=== PATIENT | female | born 1960 | race Native Hawaiian/Other Pacific Islander ===

== ENCOUNTER 2016-08-24 | Outpatient (CLI) | payer MEDICAID | END 2016-08-24 21:52 | disposition critical access hospital (66) | CPT/HCPCS: A0425; A0429 ==

== ENCOUNTER 2016-08-24 21:57 | Emergency (ER) | payer MEDICAID ==
--- NOTE | 2016-08-24 23:01 | ED Physician Documentation ---
PD HPI SYNCOPE - Stated complaint Stated Complaint: SYNCOPE - Chief complaint Chief Complaint: General - History obtained from History obtained from: Patient, Family - History of Present Illness Witnessed: Witnessed Timing - onset: Today (tonight) Duration: Seconds (15-30 seconds) Preceding symptoms: None Associated symptoms: None Contributing factors: Other (drank some alcohol and had just used marijuana) Pain level max: 0 Pain level now: 0 Similar symptoms before: Has not had sx before Recently seen: Other (post-influenza pneumonia with respiratory failure ( required intubation, with protracted course of several weeks in hospital); this was in June 2016) - Additional information Additional information: patient was seated at dinner with family. family witnessed patient slowly became drowsy, leaning forward, speech was slurred and then she lost consciousness. This lasted approximately 15-30 seconds with subsequent full and rapid recovery to baseline mental status. Family and patient believe this was related to marijuana she had just used before the event. They also note that patient did a lot of walking earlier this afternoon, and thus had already felt tired from this activity. She denies any chest pain, dyspnea, ROBERTS, weakness, numbness. She presents to ED asymptomatic. Review of Systems Constitutional: denies: Fever, Chills, Fatigue, Sweats Cardiac: reports: Reviewed and negative Respiratory: reports: Reviewed and negative GI: reports: Reviewed and negative Neurologic: reports: Syncope. denies: Generalized weakness, Focal weakness, Numbness, Seizure, Headache PD PAST MEDICAL HISTORY - Past Medical History Past Medical History: Yes Cardiovascular: Hypertension Respiratory: Asthma GI: GERD Psych: Anxiety - Past Surgical History Past Surgical History: No - Present Medications Home Medications: Ambulatory Orders Medication Instructions Recorded Confirmed Albuterol Sulf [Ventolin Hfa 2 puffs INH Q4HR PRN #1 inhaler 07/12/16 Inhaler] Carvedilol 3.125 mg PO BID #10 tablet 07/12/16 Famotidine 20 mg PO BID #10 tablet 07/12/16 Ipratropium/Albuterol Sulfate 4 gm IH Q6H #1 aer.w.adap 07/12/16 [Combivent Respimat Inhal [place]] Lisinopril 5 mg PO DAILY #7 tablet 07/12/16 Prednisone 30 mg PO DAILY #15 tablet 07/12/16 Spironolactone 25 mg PO DAILY #7 tablet 07/12/16 - Allergies Allergies/Adverse Reactions: Allergies Allergy/AdvReac Type Severity Reaction Status Date / Time No Known Drug Allergies Allergy Verified 07/12/16 12:02 - Social History Does the pt smoke?: Yes Smoking Status: Former smoker Does the pt drink ETOH?: Yes ETOH Use: Beer Does the pt have substance abuse?: No PD ED PE NORMAL - Vitals Vital signs reviewed: Yes - General General: Alert and oriented X 3, No acute distress, Well developed/nourished - HEENT HEENT: PERRL, EOMI, Moist mucous membranes - Neck Neck: Supple, no meningeal sign - Cardiac Cardiac: RRR, No murmur - Respiratory Respiratory: No respiratory distress, Clear bilaterally - Abdomen Abdomen: Soft, Non tender - Derm Derm: Normal color, Warm and dry - Extremities Extremities: No edema - Neuro Neuro: Alert and oriented X 3, youth corrections officer 2-12 intact, No motor deficit, No sensory deficit, Normal speech Results - Vitals Vitals: Vital Signs - 24 hr 08/24/16 08/24/16 23:41 23:42 Temperature 36.6 C Heart Rate 100 Heart Rate [ 103 H Sitting] Heart Rate [ 105 H Standing] Heart Rate [ 93 Supine] Respiratory 16 Rate Blood Pressure 132/89 H Blood Pressure 130/93 H [Sitting] Blood Pressure 132/89 H [Standing] Blood Pressure 130/81 H [Supine] O2 Saturation 95 Oxygen O2 Source Room air - EKG (time done) No standard instances Rate: Rate (enter#) (102), Tachy Rhythm: Sinus tachycardia [place]: LAD Intervals: Normal [place] QRS: LVH Ischemia: T wave inversion (inferior leads, V5, V6) PD MEDICAL DECISION MAKING - ED course Complexity details: considered differential, d/w patient, d/w family ED course: Patient does not want emergent testing done, and family agrees with this: they are confident that what they witnessed wasn't syncope ("fainting"), but rather she became drowsy and "relaxed" (per family) due to a combination of the patient being tired, having consumed some alcohol, and the marijuana she used. Departure - Departure Disposition: 01 Home, Self Care Clinical Impression: Hypotension Qualifiers: Hypotension type: unspecified hypotension type Qualified Code(s): I95.9 - Hypotension, unspecified Condition: Good Instructions: ED Hypotension All Causes Follow-Up: Jade Mullins ARNP [Primary Care Provider] - Discharge Date/Time: 08/24/16 23:53
[2016-08-24 23:42] VITALS: BP 130/81
== END 2016-08-24 23:53 | disposition home or self-care (01) ==
LOC: EDUNIT# → ED 21:57
DX: I95.9 Hypotension, unspecified (principal); I10 Essential (primary) hypertension; J45.909 Unspecified asthma, uncomplicated; K21.9 Gastro-esophageal reflux disease without esophagitis; Z87.891 Personal history of nicotine dependence
CPT/HCPCS: 80053; 80320; 83690; 84484; 85025; 93005; 93010; 99283; 99284

== ENCOUNTER 2016-12-19 17:38 | Outpatient (CLI) | payer MEDICAID | END 2016-12-19 17:39 | disposition home or self-care (01) | DX: I50.22 Chronic systolic (congestive) heart failure (principal) ==

== ENCOUNTER 2018-01-08 08:00 | Outpatient (CLI) | payer MEDICAID ==
[2018-01-08 12:58] LABS: BASOPHILS % (AUTO) 0.5 %; EOSINOPHILS # (AUTO) 0.1 10^3/uL (0.0-0.7); EOSINOPHILS % (AUTO) 1.5 %; HGB - HEMOGLOBIN 14.4 g/dL (12.0-16.0); LYMPHOCYTES # (AUTO) 1.8 10^3/uL (1.5-3.5); LYMPHOCYTES % (AUTO) 22.1 %; MEAN CORPUSCULAR HEMOGLOBIN 32.1 pg (27.0-31.0); MEAN CORPUSCULAR HGB CONC 33.5 g/dL (32.0-36.0); MEAN CORPUSCULAR VOLUME 95.8 fL (81.0-99.0); MEAN PLATELET VOLUME 8.1 fL (7.9-10.8); MONOCYTES # (AUTO) 0.6 10^3/uL (0.0-1.0); NEUTROPHILS # (AUTO) 5.5 10^3/uL (1.5-6.6); NEUTROPHILS % (AUTO) 68.9 %; PLT - PLATELET COUNT 304 10^3/uL (130-450); RED BLOOD COUNT 4.49 10^6/uL (4.20-5.40); RED CELL DISTRIBUTION WIDTH 14.9 % (12.0-15.0); WHITE BLOOD COUNT 7.9 x10^3/uL (4.8-10.8)
[2018-01-08 13:14] LABS: ALBUMIN 4.2 g/dL (3.2-5.5); ALBUMIN/GLOBULIN RATIO 1.5 (1.0-2.2); ALKALINE PHOSPHATASE 72 IU/L (42-121); ALT ALANINE AMINOTRANSFERASE 14 IU/L (10-60); AST ASPARTATE AMINOTRANSFERASE 18 IU/L (10-42); BILIRUBIN,TOTAL 1.1 mg/dL (0.2-1.0); BUN - BLOOD UREA NITROGEN 13 mg/dL (6-20); CALCIUM 9.2 mg/dL (8.5-10.3); CARBON DIOXIDE - CO2 31 mmol/L (21-32); CHLORIDE 101 mmol/L (101-111); CHOL/HDL RATIO 3.1 (<4.4); CHOLESTEROL 168 mg/dL; CREATININE 0.7 mg/dL (0.4-1.0); GFR - MDRD 86 (>89); GLUCOSE 83 mg/dL (70-100); HDL CHOLESTEROL 55 mg/dL; LDL CHOLESTEROL,CALCULATED 91 mg/dL; LDL/HDL RATIO 1.7 (<4.4); SODIUM 137 mmol/L (135-145); VLDL CHOLESTEROL 22 mg/dL
== END 2018-01-08 08:01 | disposition home or self-care (01) ==
LOC: LAB.N 08:00
PROVIDERS: ATTEND Nurse Practitioner Family
DX: I50.22 Chronic systolic (congestive) heart failure (principal); I10 Essential (primary) hypertension; E78.5 Hyperlipidemia, unspecified
CPT/HCPCS: 36415; 80053; 80061; 83721; 84443; 85025

== ENCOUNTER 2019-01-11 08:00 | Outpatient (CLI) | payer MEDICAID ==
[2019-01-11 12:05] LABS: BASOPHILS % (AUTO) 0.3 %; EOSINOPHILS # (AUTO) 0.1 10^3/uL (0.0-0.7); EOSINOPHILS % (AUTO) 2.4 %; HGB - HEMOGLOBIN 14.9 g/dL (12.0-16.0); LYMPHOCYTES # (AUTO) 1.5 10^3/uL (1.5-3.5); LYMPHOCYTES % (AUTO) 24.5 %; MEAN CORPUSCULAR HEMOGLOBIN 32.7 pg (27.0-31.0); MEAN CORPUSCULAR HGB CONC 33.3 g/dL (32.0-36.0); MEAN CORPUSCULAR VOLUME 98.2 fL (81.0-99.0); MEAN PLATELET VOLUME 8.7 fL (7.9-10.8); MONOCYTES # (AUTO) 0.4 10^3/uL (0.0-1.0); MONOCYTES % (AUTO) 6.3 %; NEUTROPHILS % (AUTO) 66.5 %; PLT - PLATELET COUNT 224 10^3/uL (130-450); RED BLOOD COUNT 4.57 10^6/uL (4.20-5.40); RED CELL DISTRIBUTION WIDTH 13.3 % (12.0-15.0)
[2019-01-11 12:28] LABS: BUN - BLOOD UREA NITROGEN 13 mg/dL (6-20); CARBON DIOXIDE - CO2 24 mmol/L (21-32); CHLORIDE 105 mmol/L (101-111); CHOL/HDL RATIO 2.7 (<4.4); CHOLESTEROL 154 mg/dL; CREATININE 0.7 mg/dL (0.4-1.0); GFR - MDRD 86 (>89); GLUCOSE 86 mg/dL (70-100); HDL CHOLESTEROL 58 mg/dL; LDL CHOLESTEROL,CALCULATED 86 mg/dL; LDL/HDL RATIO 1.5 (<4.4); SODIUM 139 mmol/L (135-145); VLDL CHOLESTEROL 10 mg/dL
== END 2019-01-11 23:59 | disposition home or self-care (01) ==
LOC: LAB.N 08:00
PROVIDERS: ATTEND Physician Assistant Medical
DX: I50.22 Chronic systolic (congestive) heart failure (principal); E78.5 Hyperlipidemia, unspecified; I10 Essential (primary) hypertension; I42.9 Cardiomyopathy, unspecified
CPT/HCPCS: 36415; 80048; 80061; 83721; 84443; 85025

== ENCOUNTER 2019-05-29 23:39 | Outpatient (CLI) | payer MEDICAID | END 2019-05-29 23:40 | disposition critical access hospital (66) | LOC: EMS 23:39 | PROVIDERS: ATTEND Surgery | DX: R06.02 Shortness of breath (principal) | CPT/HCPCS: A0425; A0427; A0999 ==

== ENCOUNTER 2019-05-29 23:55 | Emergency (ER) | payer MEDICAID ==
[2019-05-30] MEDS ORDERED: methylPREDNISolone SUCCINATE 125 MG/2 ML VIAL IVP STA (00:13)
--- NOTE | 2019-05-30 00:14 | ED Physician Documentation ---
History of Present Illness - Stated complaint Stated Complaint: SOA - Chief complaint Chief Complaint: Resp - Additonal information Additional information: This is a 59-year-old female history pneumonia who presents with severe difficulty breathing. Patient denies a history of COPD or asthma. She states that after she developed a pneumonia in the past she was prescribed an albuterol inhaler, but she usually does not have to use this. Over the last 4-5 days she has had some shortness of breath with exertion and some wheezing, she is also had a mild nonproductive cough. She denies fever. Tonight her breathing became much worse so EMS was called. They found her to have reduced air movement and expiratory wheezing, she received a DuoNeb treatment, with some improvement. She was initially hypoxic in the 70s on room air when they found her. She denies any chest pain or abdominal pain, no nausea or vomiting. No history of smoking. She has never had an OK or a catheterization. Review of Systems Constitutional: reports: Chills Cardiac: denies: Chest pain / pressure Respiratory: reports: Dyspnea GI: denies: Abdominal Pain, Vomiting : denies: Dysuria Skin: denies: Rash Immunocompromised: denies: Immunocompromised PD PAST MEDICAL HISTORY - Past Medical History Cardiovascular: Hypertension Respiratory: Pneumonia Neuro: None Endocrine/Autoimmune: None GI: None ASSESSMENT RN: None : None HEENT: None Psych: Anxiety Musculoskeletal: None Derm: None - Past Surgical History Past Surgical History: No - Present Medications Home Medications: Ambulatory Orders Medication Instructions Recorded Confirmed Albuterol Sulf [Ventolin Hfa 2 puffs INH Q4HR PRN #1 inhaler 07/12/16 Inhaler] Carvedilol 3.125 mg PO BID #10 tablet 07/12/16 Famotidine 20 mg PO BID #10 tablet 07/12/16 Ipratropium/Albuterol Sulfate 4 gm IH Q6H #1 aer.w.adap 07/12/16 [Combivent Respimat Inhal [place]] Lisinopril 5 mg PO DAILY #7 tablet 07/12/16 Spironolactone 25 mg PO DAILY #7 tablet 07/12/16 predniSONE [Prednisone] 30 mg PO DAILY #15 tablet 07/12/16 - Allergies Allergies/Adverse Reactions: Allergies Allergy/AdvReac Type Severity Reaction Status Date / Time No Known Drug Allergies Allergy Verified 07/12/16 12:02 - Social History Does the pt smoke?: No Smoking Status: Never smoker Does the pt drink ETOH?: Yes Does the pt have substance abuse?: No Substance Use and Type: Marijuana - Immunizations Immunizations are current?: Yes - POLST Patient has POLST: No PD ED PE NORMAL - Vitals Vital signs reviewed: Yes - General General: Alert and oriented X 3 - HEENT HEENT: PERRL - Neck Neck: Supple, no meningeal sign - Cardiac Cardiac: Other (RRR) - Respiratory Respiratory: Other (Increased work of breathing, expiratory wheeze diffusely, bibasilar crackles.) - Abdomen Abdomen: Normal bowel sounds, Soft, Non tender, Non distended - Derm Derm: Warm and dry - Extremities Extremities: No deformity, No edema - Neuro Neuro: Alert and oriented X 3 - Psych Psych: Normal mood, Normal affect Results - Vitals Vitals: Vital Signs - 24 hr 05/29/19 05/30/19 05/30/19 23:56 00:21 00:26 Temperature 35.1 C L Heart Rate 83 Respiratory 28 H Rate Blood Pressure 171/117 H O2 Saturation 100 94 91 L 05/30/19 05/30/19 05/30/19 00:30 00:52 01:00 Temperature Heart Rate 97 101 H 98 Respiratory 27 H 30 H Rate Blood Pressure 222/167 H 179/105 H O2 Saturation 94 96 05/30/19 05/30/19 05/30/19 01:15 01:30 02:00 Temperature Heart Rate 80 79 75 Respiratory 26 H 29 H 24 Rate Blood Pressure 116/76 116/79 O2 Saturation 95 97 97 05/30/19 05/30/19 05/30/19 02:30 03:43 04:00 Temperature Heart Rate 64 61 67 Respiratory 20 22 Rate Blood Pressure 122/77 126/88 H O2 Saturation 97 100 05/30/19 05:42 Temperature Heart Rate 80 Respiratory Rate Blood Pressure O2 Saturation Oxygen O2 Source BIPAP - EKG (time done) 00:12 Other comments: Other comments (Rate 85, rhythm sinus, left ventricular hypertrophy, subtle ST depression in V6 and aVL, no ST segment elevation.QTc 41) - Labs Labs: Laboratory Tests 05/30/19 05/30/19 05/30/19 00:50 00:50 00:50 WBC 14.9 H RBC 4.80 Hgb 16.1 H Hct 50.7 H MCV 105.6 H MCH 33.5 H MCHC 31.8 L RDW 13.2 Plt Count 240 MPV 10.8 Neut # (Auto) 10.4 H Lymph # (Auto) 3.2 [place] # (Auto) 0.9 Eos # (Auto) 0.2 Baso # (Auto) 0.1 Absolute Nucleated RBC 0.00 Nucleated RBC % 0.0 PT INR VBG pH VBG pCO2 VBG pO2 VBG HCO3 VBG Total CO2 VBG O2 Saturation VBG Base Excess Sodium 138 Potassium 4.5 Chloride 102 Carbon Dioxide 25 Anion Gap 11.0 BUN 21 H Creatinine 1.1 H Estimated GFR (MDRD) 51 L Glucose 170 H Lactic Acid Calcium 9.1 Total Bilirubin 1.3 H AST 72 H ALT 61 H Alkaline Phosphatase 99 Troponin I High Sens 16.7 H* B-Natriuretic Peptide Total Protein 7.2 Albumin 3.9 Globulin 3.3 Albumin/Globulin Ratio 1.2 Lipase 35 TSH 05/30/19 05/30/19 05/30/19 00:50 00:50 00:50 WBC RBC Hgb Hct MCV MCH MCHC RDW Plt Count MPV Neut # (Auto) Lymph # (Auto) [place] # (Auto) Eos # (Auto) Baso # (Auto) Absolute Nucleated RBC Nucleated RBC % PT 12.9 H INR 1.1 VBG pH VBG pCO2 VBG pO2 VBG HCO3 VBG Total CO2 VBG O2 Saturation VBG Base Excess Sodium Potassium Chloride Carbon Dioxide Anion Gap BUN Creatinine Estimated GFR (MDRD) Glucose Lactic Acid Calcium Total Bilirubin AST ALT Alkaline Phosphatase Troponin I High Sens B-Natriuretic Peptide 3241 H Total Protein Albumin Globulin Albumin/Globulin Ratio Lipase TSH 3.74 05/30/19 05/30/19 05/30/19 01:15 01:15 02:30 WBC RBC Hgb Hct MCV MCH MCHC RDW Plt Count MPV Neut # (Auto) Lymph # (Auto) [place] # (Auto) Eos # (Auto) Baso # (Auto) Absolute Nucleated RBC Nucleated RBC % PT INR VBG pH 7.286 L VBG pCO2 52.2 H VBG pO2 39.7 VBG HCO3 24.3 VBG Total CO2 25.9 VBG O2 Saturation 70.4 VBG Base Excess -3.1 L Sodium Potassium Chloride Carbon Dioxide Anion Gap BUN Creatinine Estimated GFR (MDRD) Glucose Lactic Acid 1.3 Calcium Total Bilirubin AST ALT Alkaline Phosphatase Troponin I High Sens 19.1 H* B-Natriuretic Peptide Total Protein Albumin Globulin Albumin/Globulin Ratio Lipase TSH - Rads (name of study) CXR Radiology: Other (Cardiomegaly and pulmonary edema with bilateral effusions) POC bedside echo Radiology: Other (Moderate to severely reduced LVEF. Right heart size appears grossly normal. B lines on lungs) PD MEDICAL DECISION MAKING - ED course Complexity details: considered differential (Asthma, pneumonia, heart failure, pulmonary edema, OK, dysrhythmia, pleural effusion, pneumothorax) ED course: On arrival patient is hypertensive and with increased work of breathing. On high flow oxygen she has normal oxygen saturation when this is turned down and she quickly desaturates. She is received 2 nebulizer treatments in route. She has diffuse wheezing bilaterally. X-ray was ordered and bedside ultrasound was performed showing reduced ejection fraction and B-lines. Chest x-ray shows pulmonary edema bilateral pleural effusions and cardiomegaly. EKG shows left ventricular hypertrophy with repolarization abnormality. Patient was placed on BiPAP and given 1 nitroglycerin sublingually, she had drastic improvement in her work of breathing. Previously she been diaphoretic and tachypneic, her respiratory rate on BiPAP is normal, oxygen saturation is excellent, and heart rate Has normalized. She is feeling much better. Patient was also given 40 mg of Lasix IV. Labs show leukocytosis which is likely from demargination due to stress, also Showed elevated hemoglobin. BNP is elevated consistent with heart failure, High-sensitivity troponin is slightly elevated at 12. Given her clinical picture I think ACS is unlikely, this troponin leak is consistent with heart failure. I spoke with patient about this issue, and she states that may be in the past she was told that she had some reduced squeeze of her heart, but she is unclear sure if she is ever been diagnosed with heart failure. On review of her records it sound like she had a nearly month-long hospitalization at [facility], she states this is for pneumonia but it seems that she had a cardiomyopathy as well. [facility] did not have beds for transfer today. We do not have echo available at our hospital at this time and after discussion with Dr. Fitzpatrick she does not think patient would be well-served at our hospital given our limited cardiac diagnositics. [facility] was contacted for transfer, Dr. Torrez, rn birthing accepted, Aleksandar completed, and patient was transferred with BIPAP via ALS. She is hemodynamically stable at this time and feeling much improved. Departure - Departure Disposition: 02 Transfer Acute Care Hosp Clinical Impression: Heart failure Qualifiers: Heart failure type: unspecified Heart failure chronicity: acute on chronic Qualified Code(s): I50.9 - Heart failure, unspecified Condition: Stable Discharge Date/Time: 05/30/19 06:06
--- NOTE | 2019-05-30 00:43 | XRAY Report ---
Reason: Chest Pain Procedure Date: 05/30/2019 Accession Number: [id number] / [id number] Procedure: XR - Chest 1 View X-Ray CPT Code: 92631 FULL RESULT: EXAM: CHEST RADIOGRAPHY EXAM DATE: 05/30/2019 12:32 AM. CLINICAL HISTORY: Chest Pain. COMPARISON: None. TECHNIQUE: 1 view. FINDINGS: Lungs/Pleura: Bibasilar ill-defined disease, with central vascular congestion and likely pleural effusions. No pneumothoraces. Some decreased volumes. Mediastinum: Enlarged cardiac silhouette. Other: None. IMPRESSION: Prominent heart size with bibasilar opacities suggests CHF. Underlying infection cannot be excluded. Probable bilateral effusions, right more than left. RADIA
[2019-05-30] MEDS ORDERED: NITROGLYCERIN SL 0.4 MG TABLET SL STA (00:45)
[2019-05-30] MEDS ORDERED: FUROSEMIDE 40 MG/4 ML VIAL IVP STA (00:53)
[2019-05-30 00:54] LABS: BASOPHILS # (AUTO) 0.1 10^3/uL (0.0-0.1); BASOPHILS % (AUTO) 0.5 %; EOSINOPHILS # (AUTO) 0.2 10^3/uL (0.0-0.7); EOSINOPHILS % (AUTO) 1.4 %; HGB - HEMOGLOBIN 16.1 g/dL (12.0-16.0); LYMPHOCYTES # (AUTO) 3.2 10^3/uL (1.5-3.5); LYMPHOCYTES % (AUTO) 21.5 %; MEAN CORPUSCULAR HEMOGLOBIN 33.5 pg (27.0-31.0); MEAN CORPUSCULAR HGB CONC 31.8 g/dL (32.0-36.0); MEAN CORPUSCULAR VOLUME 105.6 fL (81.0-99.0); MEAN PLATELET VOLUME 10.8 fL (7.9-10.8); MONOCYTES # (AUTO) 0.9 10^3/uL (0.0-1.0); MONOCYTES % (AUTO) 5.9 %; NEUTROPHILS # (AUTO) 10.4 10^3/uL (1.5-6.6); NEUTROPHILS % (AUTO) 70.1 %; PLT - PLATELET COUNT 240 10^3/uL (130-450); RED CELL DISTRIBUTION WIDTH 13.2 % (12.0-15.0); WHITE BLOOD COUNT 14.9 x10^3/uL (4.8-10.8)
[2019-05-30] MEDS ORDERED: NITROGLYCERIN SL 0.4 MG TABLET SL ONE (00:58)
[2019-05-30 01:01] LABS: INR 1.1 (0.8-1.2); PT - PROTHROMBIN TIME 12.9 secs (9.9-12.6)
[2019-05-30] MEDS ORDERED: FUROSEMIDE 40 MG/4 ML VIAL ONE (01:02)
[2019-05-30 01:09] LABS: ALBUMIN 3.9 g/dL (3.2-5.5); ALBUMIN/GLOBULIN RATIO 1.2 (1.0-2.2); BILIRUBIN,TOTAL 1.3 mg/dL (0.2-1.0); CALCIUM 9.1 mg/dL (8.5-10.3); CREATININE 1.1 mg/dL (0.4-1.0); TOTAL PROTEIN 7.2 g/dL (6.7-8.2)
[2019-05-30 02:05] LABS: VBG BASE EXCESS -3.1 mmol/L (-2 - +2); VBG PCO2 52.2 mmHg (41-51); VBG PH 7.286 (7.31-7.41); VBG PO2 39.7 mmHg (25-47); VBG TOTAL CO2 25.9 mmol/L (24-29)
[2019-05-30 04:05] VITALS: BP 126/88
== END 2019-05-30 06:06 | disposition short-term general hospital (02) ==
LOC: EDUNIT# → ED 23:55
DX: I11.0 Hypertensive heart disease with heart failure (principal); I50.9 Heart failure, unspecified; R09.02 Hypoxemia
CPT/HCPCS: 36415; 71045; 80053; 82803; 83605; 83690; 83880; 84443; 84484; 85025; 85610; 93005; 94660; 96374; 96375; 99284; 99285; A9270

== ENCOUNTER 2019-06-08 10:33 | Outpatient (CLI) | payer MEDICAID ==
[2019-06-08 12:38] LABS: HGB - HEMOGLOBIN 15.7 g/dL (12.0-16.0); MEAN CORPUSCULAR HEMOGLOBIN 32.2 pg (27.0-31.0); MEAN CORPUSCULAR VOLUME 100.6 fL (81.0-99.0); MEAN PLATELET VOLUME 10.9 fL (7.9-10.8); RED BLOOD COUNT 4.87 10^6/uL (4.20-5.40); RED CELL DISTRIBUTION WIDTH 12.5 % (12.0-15.0); WHITE BLOOD COUNT 7.2 x10^3/uL (4.8-10.8)
[2019-06-08 12:59] LABS: CALCIUM 9.5 mg/dL (8.5-10.3)
== END 2019-06-08 10:34 | disposition home or self-care (01) ==
LOC: LAB.N 10:33
PROVIDERS: ATTEND Physician Assistant Medical
DX: I50.21 Acute systolic (congestive) heart failure (principal)
CPT/HCPCS: 36415; 80048; 83880; 85027

== ENCOUNTER 2019-07-20 10:36 | Emergency (ER) | payer MEDICAID ==
[2019-07-20 11:39] LABS: BASOPHILS % (AUTO) 0.5 %; EOSINOPHILS # (AUTO) 0.1 10^3/uL (0.0-0.7); EOSINOPHILS % (AUTO) 2.5 %; HGB - HEMOGLOBIN 17.5 g/dL (12.0-16.0); LYMPHOCYTES # (AUTO) 1.1 10^3/uL (1.5-3.5); LYMPHOCYTES % (AUTO) 18.7 %; MEAN CORPUSCULAR HEMOGLOBIN 32.5 pg (27.0-31.0); MEAN CORPUSCULAR HGB CONC 32.2 g/dL (32.0-36.0); MEAN CORPUSCULAR VOLUME 100.9 fL (81.0-99.0); MEAN PLATELET VOLUME 10.7 fL (7.9-10.8); MONOCYTES # (AUTO) 0.6 10^3/uL (0.0-1.0); MONOCYTES % (AUTO) 11.4 %; NEUTROPHILS # (AUTO) 3.7 10^3/uL (1.5-6.6); NEUTROPHILS % (AUTO) 66.4 %; PLT - PLATELET COUNT 214 10^3/uL (130-450); RED BLOOD COUNT 5.38 10^6/uL (4.20-5.40); RED CELL DISTRIBUTION WIDTH 13.8 % (12.0-15.0); WHITE BLOOD COUNT 5.6 x10^3/uL (4.8-10.8)
--- NOTE | 2019-07-20 11:47 | XRAY Report ---
Reason: cough, hx of CHF Procedure Date: 07/20/2019 Accession Number: [id number] / [id number] Procedure: XR - Chest 2 View X-Ray CPT Code: 06124 Final Report FULL RESULT: EXAM: CHEST RADIOGRAPHY EXAM DATE: 07/20/2019 11:15 AM. CLINICAL HISTORY: Cough, hx of CHF. COMPARISON: CHEST 1 VIEW 05/30/2019 12:14 AM. TECHNIQUE: 2 views. FINDINGS: Lungs/Pleura: Mild right base pulmonary opacities could reflect pneumonia. Possible trace right base pleural effusion. Prior interstitial prominence has resolved. No focal left-sided opacities. No pneumothorax. Mediastinum: Heart and mediastinal contours are unremarkable. Other: None. IMPRESSION: 1. Prior pulmonary edema appears resolved. 2. Right base pulmonary opacities could reflect mild pneumonia. RADIA
[2019-07-20 12:00] LABS: ALBUMIN 4.4 g/dL (3.2-5.5); ALBUMIN/GLOBULIN RATIO 1.2 (1.0-2.2); BILIRUBIN,TOTAL 1.2 mg/dL (0.2-1.0); CALCIUM 9.7 mg/dL (8.5-10.3); TOTAL PROTEIN 8.1 g/dL (6.7-8.2)
--- NOTE | 2019-07-20 12:21 | ED Physician Documentation ---
PD HPI URI - Stated complaint Stated Complaint: CONGESTION - Chief complaint Chief Complaint: Cardiac - History obtained from History obtained from: Patient - History of Present Illness Timing - onset: How many days ago (few) Timing duration: Days (few) Timing details: Gradual onset, Still present Associated symptoms: Chills, Productive cough, Dyspnea. No: Fever, NVD, Bilateral edema Contributing factors: No: Sick contact, Travel, Immunocompromised Similar symptoms before: Has not had sx before Recently seen: Emergency Dept, Admitted ([facility] for CHF due to HTN. This was month or so ago, doing well since.) Review of Systems Constitutional: reports: Chills, Myalgias Nose: reports: Congestion Throat: reports: Sore throat Cardiac: denies: Chest pain / pressure Respiratory: reports: Dyspnea, Cough. denies: Wheezing GI: denies: Abdominal Pain, Nausea, Vomiting, Diarrhea Skin: denies: Rash Musculoskeletal: denies: Extremity swelling Neurologic: reports: Generalized weakness. denies: Focal weakness, Numbness PD PAST MEDICAL HISTORY - Past Medical History Cardiovascular: Hypertension Respiratory: Pneumonia Neuro: None Endocrine/Autoimmune: None GI: None RECONSTRUCTIVE SURGEON: None : None HEENT: None Psych: Anxiety Musculoskeletal: None Derm: None - Past Surgical History Past Surgical History: No - Present Medications Home Medications: Ambulatory Orders Medication Instructions Recorded Confirmed Albuterol Sulf [Ventolin Hfa 2 puffs INH Q4HR PRN #1 inhaler 07/12/16 Inhaler] Famotidine 20 mg PO BID #10 tablet 07/12/16 Ipratropium/Albuterol Sulfate 4 gm IH Q6H #1 aer.w.adap 07/12/16 [Combivent Respimat Inhal [place]] Lisinopril 5 mg PO DAILY #7 tablet 07/12/16 Spironolactone 25 mg PO DAILY #7 tablet 07/12/16 carvediloL [Carvedilol] 3.125 mg PO BID #10 tablet 07/12/16 predniSONE [Prednisone] 30 mg PO DAILY #15 tablet 07/12/16 Albuterol Sulf [Ventolin Hfa 1 - 2 puffs INH Q4HR PRN #1 inhaler 07/20/19 Inhaler] Benzonatate [Tessalon Perle] 100 mg PO TID PRN #25 capsule 07/20/19 Doxycycline Monohydrate 100 mg PO BID #14 tablet 07/20/19 dexAMETHasone [Decadron] 4 mg PO DAILY #5 tablet 07/20/19 - Allergies Allergies/Adverse Reactions: Allergies Allergy/AdvReac Type Severity Reaction Status Date / Time No Known Drug Allergies Allergy Verified 07/12/16 12:02 - Social History Does the pt smoke?: No Smoking Status: Never smoker Does the pt drink ETOH?: Yes Does the pt have substance abuse?: No - Immunizations Immunizations are current?: Yes - POLST Patient has POLST: No PD ED PE NORMAL - Vitals Vital signs reviewed: Yes - General General: Alert and oriented X 3, No acute distress, Well developed/nourished - HEENT HEENT: Pharynx benign - Neck Neck: Supple, no meningeal sign, No adenopathy - Cardiac Cardiac: RRR, No murmur - Respiratory Respiratory: No: Clear bilaterally (no wheezing; right base with some mild congestion. ) - Abdomen Abdomen: Soft, Non tender - Back Back: No CVA TTP - Derm Derm: Normal color, Warm and dry - Extremities Extremities: No tenderness to palpate, Normal ROM s pain, No edema, No calf tenderness / cord - Neuro Neuro: Alert and oriented X 3, No motor deficit, Normal speech Results - Vitals Vitals: Oxygen O2 Source Room air - EKG (time done) 12:03 Rate: Rate (enter#) (65) Rhythm: NSR [place]: Normal Intervals: Normal [place] QRS: Normal Ischemia: Normal ST segments, Non specific changes Compare to prior EKG: Unchanged from prior EKG - Labs Labs: Laboratory Tests 07/20/19 07/20/19 07/20/19 11:31 11:31 11:31 WBC 5.6 RBC 5.38 Hgb 17.5 H Hct 54.3 H MCV 100.9 H MCH 32.5 H MCHC 32.2 RDW 13.8 Plt Count 214 MPV 10.7 Neut # (Auto) 3.7 Lymph # (Auto) 1.1 L [place] # (Auto) 0.6 Eos # (Auto) 0.1 Baso # (Auto) 0.0 Absolute Nucleated RBC 0.00 Nucleated RBC % 0.0 Sodium 140 Potassium 4.4 Chloride 99 L Carbon Dioxide 30 Anion Gap 11.0 BUN 12 Creatinine 1.0 Estimated GFR (MDRD) 57 L Glucose 101 H Calcium 9.7 Magnesium 2.1 Total Bilirubin 1.2 H AST 23 ALT 15 Alkaline Phosphatase 73 B-Natriuretic Peptide Total Protein 8.1 Albumin 4.4 Globulin 3.7 Albumin/Globulin Ratio 1.2 Lipase 32 07/20/19 11:31 WBC RBC Hgb Hct MCV MCH MCHC RDW Plt Count MPV Neut # (Auto) Lymph # (Auto) [place] # (Auto) Eos # (Auto) Baso # (Auto) Absolute Nucleated RBC Nucleated RBC % Sodium Potassium Chloride Carbon Dioxide Anion Gap BUN Creatinine Estimated GFR (MDRD) Glucose Calcium Magnesium Total Bilirubin AST ALT Alkaline Phosphatase B-Natriuretic Peptide 1102 H Total Protein Albumin Globulin Albumin/Globulin Ratio Lipase - Rads (name of study) chest xray Radiology: Prelim report reviewed, See rad report (no acute process) PD MEDICAL DECISION MAKING - ED course Complexity details: reviewed results (small infiltrates right base), considered differential, d/w patient Departure - Departure Disposition: 01 Home, Self Care Clinical Impression: Lower respiratory infection Pneumonia Qualifiers: Pneumonia type: due to unspecified organism Laterality: right Lung location: lower lobe of lung Qualified Code(s): J18.9 - Pneumonia, unspecified organism Condition: Stable Record reviewed to determine appropriate education?: Yes Instructions: ED Upper Resp Infec Abx Tx Follow-Up: Jose Courtney PA-C [Primary Care Provider] - Prescriptions: Albuterol Sulf [Ventolin Hfa Inhaler] 1 - 2 puffs INH Q4HR PRN #1 inhaler PRN Reason: Shortness Of Air/Wheezing Benzonatate [Tessalon Per[place]] 100 mg PO TID PRN #25 capsule PRN Reason: Cough dexAMETHasone [Decadron] 4 mg PO DAILY #5 tablet Doxycycline Monohydrate 100 mg PO BID #14 tablet Comments: Continue with usual medications. There does not appear to be any other congestive failure (fluid in the lungs) at this time. Presume this is an infection through the bronchials and would be concern for bronchitis or early pneumonia. Use your albuterol inhaler 2 puffs 4 times a day and extra times as needed for wheezing and cough. Decadron steroid daily for 5 more days to decrease inflammation through the airways and will improve your breathing and decrease the cough. Add benzonatate if needed for cough suppression. This may be a viral illness but with concern for bacterial cause, will add dox ycycline antibiotic twice daily for a week. Recheck if not improving well over the next few days, return sooner if worsening. Expect to be ill likely a week or so however before being mostly resolved and sometimes the cough will continue to some degree for even a couple weeks after that. Discharge Date/Time: 07/20/19 13:34
[2019-07-20] MEDS ORDERED: ALBUTEROL NEB 2.5 MG/3 ML INH STA (12:36)
[2019-07-20] MEDS ORDERED: DEXAMETHASONE 10 MG/ML VIAL PO STA (12:37)
[2019-07-20] MEDS ORDERED: CHERRY SYRUP 10 ML UDC PO ONE (12:37)
[2019-07-20] MEDS ORDERED: DOXYCYCLINE 100 MG TABLET PO STA (12:37)
[2019-07-20] MEDS ORDERED: BENZONATATE 100 MG CAPSULE PO STA (12:37)
[2019-07-20 13:33] VITALS: BP 144/84
== END 2019-07-20 13:34 | disposition home or self-care (01) ==
LOC: ED 10:36
DX: J18.9 Pneumonia, unspecified organism (principal); I10 Essential (primary) hypertension
CPT/HCPCS: 36415; 71046; 80053; 83690; 83735; 83880; 85025; 93005; 94640; 99284; A9270

== ENCOUNTER 2019-08-03 07:50 | Outpatient (CLI) | payer MEDICAID ==
[2019-08-03 16:19] LABS: CALCIUM 9.1 mg/dL (8.5-10.3); CREATININE 0.9 mg/dL (0.4-1.0)
== END 2019-08-03 23:59 | disposition home or self-care (01) ==
LOC: LAB.N 07:50
PROVIDERS: ATTEND Physician Assistant Medical
DX: I50.22 Chronic systolic (congestive) heart failure (principal)
CPT/HCPCS: 36415; 80048; 83880

== ENCOUNTER 2020-04-12 08:45 | Outpatient (CLI) | payer MEDICAID ==
[2020-04-12 12:08] LABS: BASOPHILS % (AUTO) 0.5 %; EOSINOPHILS # (AUTO) 0.2 10^3/uL (0.0-0.7); EOSINOPHILS % (AUTO) 3.1 %; LYMPHOCYTES # (AUTO) 1.8 10^3/uL (1.5-3.5); LYMPHOCYTES % (AUTO) 31.4 %; MEAN CORPUSCULAR HEMOGLOBIN 31.3 pg (27.0-31.0); MEAN CORPUSCULAR HGB CONC 31.7 g/dL (32.0-36.0); MEAN CORPUSCULAR VOLUME 98.7 fL (81.0-99.0); MEAN PLATELET VOLUME 10.8 fL (7.9-10.8); MONOCYTES # (AUTO) 0.4 10^3/uL (0.0-1.0); MONOCYTES % (AUTO) 6.7 %; NEUTROPHILS # (AUTO) 3.4 10^3/uL (1.5-6.6); NEUTROPHILS % (AUTO) 58.1 %; PLT - PLATELET COUNT 298 10^3/uL (130-450); RED BLOOD COUNT 4.47 10^6/uL (4.20-5.40); WHITE BLOOD COUNT 5.8 x10^3/uL (4.8-10.8)
[2020-04-12 12:31] LABS: ALBUMIN 4.2 g/dL (3.2-5.5); ALBUMIN/GLOBULIN RATIO 1.4 (1.0-2.2); ALKALINE PHOSPHATASE 53 IU/L (42-121); ALT ALANINE AMINOTRANSFERASE 12 IU/L (10-60); AST ASPARTATE AMINOTRANSFERASE 16 IU/L (10-42); BILIRUBIN,TOTAL 0.7 mg/dL (0.2-1.0); BUN - BLOOD UREA NITROGEN 16 mg/dL (6-20); CALCIUM 9.2 mg/dL (8.5-10.3); CARBON DIOXIDE - CO2 30 mmol/L (21-32); CHLORIDE 104 mmol/L (101-111); CHOL/HDL RATIO 3.6 (<4.4); CHOLESTEROL 169 mg/dL; CREATININE 0.9 mg/dL (0.4-1.0); GLUCOSE 87 mg/dL (70-100); HDL CHOLESTEROL 47 mg/dL; LDL CHOLESTEROL,CALCULATED 107 mg/dL; LDL/HDL RATIO 2.3 (<4.4); SODIUM 139 mmol/L (135-145); TOTAL PROTEIN 7.1 g/dL (6.7-8.2); VLDL CHOLESTEROL 15 mg/dL
== END 2020-04-12 23:59 | disposition home or self-care (01) ==
LOC: LAB.WCP 08:45
PROVIDERS: ATTEND Nurse Practitioner Family
DX: I10 Essential (primary) hypertension (principal); E78.5 Hyperlipidemia, unspecified; I42.9 Cardiomyopathy, unspecified; J44.9 Chronic obstructive pulmonary disease, unspecified
CPT/HCPCS: 36415; 80053; 80061; 83721; 84443; 85025

== ENCOUNTER 2021-12-22 17:17 | Emergency (ER) | payer MEDICAID ==
[2021-12-22 17:28] VITALS: BP 104/82
--- NOTE | 2021-12-22 17:47 | ED Physician Documentation ---
History of Present Illness - Stated complaint Stated Complaint: GLF - Chief complaint Chief Complaint: Trauma Ext - Additonal information Additional information: 61-year-old female comes to the emergency department with her daughter for evalu ation of a contusion on the back of her head, acute left knee pain and persistent pain in the right ankle. She did fall forward down 4-5 stairs just prior to arrival. The patient states that 1 week ago she twisted her right ankle and has had difficulty bearing weight since. She does admit to drinking today. She was trying to descend 4 stairs when her ankle gave out and she fell forward. Maia win reports that she did hit the back of her head but did not lose consciousness. Patient's past medical history is significant for hypertension and heart failure. She is not anticoagulated. Did not lose consciousness. Denies any headache or vomiting. Review of Systems Constitutional: denies: Fever, Chills Eyes: reports: Reviewed and negative Throat: reports: Reviewed and negative Cardiac: reports: Reviewed and negative Respiratory: reports: Reviewed and negative GI: reports: Reviewed and negative : reports: Reviewed and negative Skin: reports: Abrasion (s) Musculoskeletal: reports: Joint pain. 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 : None HEENT: None Psych: Anxiety Musculoskeletal: None Derm: None - Past Surgical History Past Surgical History: No - Present Medications Home Medications: Ambulatory Orders Medication Instructions Recorded Confirmed Albuterol Sulf [Ventolin Hfa 2 puffs INH Q4HR PRN #1 inhaler 07/12/16 12/22/21 Inhaler] Famotidine 20 mg PO BID #10 tablet 07/12/16 12/22/21 Ipratropium/Albuterol Sulfate 4 gm IH Q6H #1 aer.w.adap 07/12/16 12/22/21 [Combivent Respimat Inhal [place]] Spironolactone 25 mg PO DAILY #7 tablet 07/12/16 12/22/21 carvediloL [Carvedilol] 3.125 mg PO BID #10 tablet 07/12/16 12/22/21 Albuterol Sulf [Ventolin Hfa 1 - 2 puffs INH Q4HR PRN #1 inhaler 07/20/19 12/22/21 Inhaler] Furosemide [Lasix] 20 mg PO DAILY 12/22/21 12/22/21 lisinopriL [Lisinopril] 20 mg PO DAILY 12/22/21 12/22/21 - Allergies Allergies/Adverse Reactions: Allergies Allergy/AdvReac Type Severity Reaction Status Date / Time No Known Drug Allergies Allergy Verified 07/12/16 12:02 - Social History Does the pt smoke?: No Smoking Status: Never smoker Does the pt drink ETOH?: Yes Does the pt have substance abuse?: No - Immunizations Immunizations are current?: Yes - POLST Patient has POLST: No PD ED PE EXPANDED - General General: Alert, No acute distress - HEENT HEENT: Head injury (Contusion superficial posterior occiput.), PERRL, EOMI, Ears normal, Moist mucous membranes. No: Atraumatic - Eyes Eyes: PERRL, Normal accommodation - Neck Neck: Stiff neck, No tenderness. No: Adenopathy, Soft tissue TTP, Limited ROM - Cardiac Cardiac: Regular Rate, Radial strong equal, Pedal strong equal, Cap refill < 2 sec. No: Murmur Present - Respiratory Respiratory: Clear to ausultation isabel. No: Distress, Labored - Extremities Extremities: Left knee (Superficial abrasion on the anterior knee. Normal flexion and extension. Able to bear nearly full weight. No laxity on testing. No tenderness of the proximal tibial head.), Right ankle (Swelling over the lateral malleolus. Full range of motion of the ankle. Increased pain with inversion. Normal dorsi and plantar flexion. No ecchymosis) - Neuro Neuro: Alert and Oriented X 3, CNII-XII intact, Normal speech - GCS Eye Opening: Spontaneous Motor: Obeys Commands Verbal: Oriented Total: 15 Results - Vitals Vitals: Vital Signs - 24 hr 12/22/21 17:22 Temperature 36.5 C Heart Rate 77 Respiratory 16 Rate Blood Pressure 104/82 H O2 Saturation 98 Oxygen O2 Source Room air - Rads (name of study) right ankle Radiology: EMP read indepedently (Right lateral malleolus fracture comminuted mildly displaced) left knee Radiology: Final report received (No acute fracture or dislocation) cervical spine ct Radiology: Final report received (No acute process) CT head Radiology: Final report received (No acute intracranial process) PD MEDICAL DECISION MAKING - ED course Complexity details: reviewed results, re-evaluated patient, considered differential, d/w patient, d/w family ED course: This is a 61-year-old female who admits to drinking today who comes to the emergency department after she fell forward down 4-5 stairs at her daughter's house. She did strike the back of her head but did not lose consciousness. She does have a superficial abrasion on her posterior occiput. She also has an abrasion on her left knee. She endorses that she fell because of pain in the right ankle after twisting it a week ago. X-ray of the right ankle does show a mildly displaced comminuted right malleolus fracture. She is placed in a fiberglass stirrup splint and given crutches. Advised close follow-up with primary care provider. Imaging of the left knee, head and neck are without obvious findings. She is neurologically intact though mildly intoxicated. Patient is discharged home in stable condition with her daughter who is driving her. Advised close follow-up with primary care provider in order to obtain appropriate referral to orthopedics. Routine splint care and emergent return p recautions otherwise discussed Departure - Departure Disposition: 01 Home, Self Care Clinical Impression: Abrasion, left knee, initial encounter Closed fracture of right distal fibula Qualifiers: Encounter type: initial encounter Fracture morphology: other fracture Qualified Code(s): S82.831A - Other fracture of upper and lower end of right fibula, initial encounter for closed fracture Alcohol intoxication Qualifiers: Complication of substance-induced condition: uncomplicated Qualified Code(s): F10.920 - Alcohol use, unspecified with intoxication, uncomplicated Fall down stairs Qualifiers: Encounter type: initial encounter Qualified Code(s): W10.8XXA - Fall (on) (from) other stairs and steps, initial encounter Head contusion Qualifiers: Encounter type: initial encounter Contusion of head detail: scalp Qualified Code(s): S00.03XA - Contusion of scalp, initial encounter Condition: Stable Record reviewed to determine appropriate education?: Yes Instructions: ED Cast Care Fiberglass, ED Fx Lower Extr Ch Follow-Up: Jennifer Khanna MD [Primary Care Provider] - Comments: You were seen today in the emergency department for pain in your right ankle that you have had for a week after twisting it. The x-ray shows a mildly displaced right distal fibular fracture. We have placed you in a fiberglass splint. You should request an orthopedics referral from your primary doctor. The splint cannot get wet so if it does get wet return to the ER to have it replaced. In general I recommend that you take Tylenol or ibuprofen for discomfort. You fell down many stairs today. The CT of your head and neck do not show any fractures bruises or bleeding. The x-ray of your left knee is also normal though you do have an abrasion that should simply heal with time. If at any point you develop any sudden severe headache, have uncontrolled vomiting, slurred speech or droopy face then please return immediately to the ER.
== END 2021-12-22 20:20 | disposition home or self-care (01) ==
LOC: ED 17:17
DX: S00.01XA Abrasion of scalp, initial encounter (principal); S00.03XA Contusion of scalp, initial encounter; S80.212A Abrasion, left knee, initial encounter; S82.891A Other fracture of right lower leg, initial encounter for closed fracture; W10.9XXA Fall (on) (from) unspecified stairs and steps, initial encounter; Y92.009 Unspecified place in unspecified non-institutional (private) residence as the place of occurrence of the external cause; F10.129 Alcohol abuse with intoxication, unspecified
CPT/HCPCS: 99284

== ENCOUNTER 2023-10-15 08:51 | Outpatient (CLI) | payer MEDICAID | END 2023-10-15 08:52 | disposition EMS.NT | LOC: EMS 08:51 | DX: R06.2 Wheezing (principal); R06.02 Shortness of breath ==